=== PATIENT | male | born 2000 | race Caucasian/White ===

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

== ENCOUNTER 2021-01-10 19:14 | Emergency (ER) | payer OTHER ==
[2021-01-10 19:24] VITALS: BP 122/63; PULSE 80; RESP 18; TEMP 100
[2021-01-10] MEDS ORDERED: IBUPROFEN 600 MG TAB PO STA (20:26)
--- NOTE | 2021-01-10 20:26 | ED ---
URI HPI - General Chief Complaint: Upper Respiratory Infection Stated Complaint: Covid exposure, fever Time Seen by Provider: 01/10/21 19:52 Source: patient Mode of arrival: ambulatory Limitations: no limitations - History of Present Illness Initial Comments: 20yo male presenting today for chief complaint of fever cough bodyaches and sore throat. Patient states that his girlfriend and family have elevated. Patient states he believes he has as well. They recommended he come here for testing. Patient states he has no shortness of breath no chest pain states he had cough, bodyaches, fevers and sore throat. Some nausea, no vomiting, diarrhea or abdominal pain. Patient appears well nontoxic in no acute distress on arrival. 100F tylenol at 530PM - Related Data Home Medications Medication Instructions Recorded Confirmed No Known Home Medications 07/17/14 10/17/15 Allergies Allergy/AdvReac Type Severity Reaction Status Date / Time No Known Allergies Allergy Verified 01/10/21 19:24 Review of Systems ROS Statement: Those systems with pertinent positive or pertinent negative responses have been documented in the HPI. ROS Other: All systems not noted in ROS Statement are negative. Past Medical History Past Medical History: No Reported History Additional Past Medical History / Comment(s): SEIZURE History of Any Multi-Drug Resistant Organisms: None Reported Past Surgical History: No Surgical Hx Reported Past Psychological History: No Psychological Hx Reported Smoking Status: Vaper Past Alcohol Use History: None Reported Past Drug Use History: None Reported General Exam - General Exam Comments Initial Comments: General: The patient is awake and alert, in no distress Eye: +3 mm pupils are equal, round and reactive to light, extra-ocular movements are intact. No nystagmus. There is normal conjunctiva bilaterally. No signs of icterus. Ears, nose, mouth and throat: There are moist mucous membranes and no oral lesions. Neck: The neck is supple, there is no tenderness or JVD. Cardiovascular: There is a regular rate and rhythm. No murmur, rub or gallop is appreciated. Respiratory: Lungs are clear to auscultation, respirations are non-labored, breath sounds are equal. No wheezes, stridor, rales, or rhonchi. Musculoskeletal: Normal ROM, no tenderness. Strength 5/5. Sensation intact. radial and DP pulses equal bilaterally 2+. Neurological: A&O x 3. CN II-XII intact grossly, There are no obvious motor or sensory deficits. Coordination appears grossly intact. Speech is normal. Skin: Skin is warm and dry and no rashes or lesions are noted. Psychiatric: Cooperative, appropriate mood & affect, normal judgment. Limitations: no limitations Course Vital Signs 01/10/21 19:19 Temperature 100 F H Pulse Rate 80 Respiratory 18 Rate Blood Pressure 122/63 O2 Sat by Pulse 99 Oximetry Medical Decision Making - Medical Decision Making 20yo male presenting for cc of covid symptoms. fevers, cough, body aches. Covid +. Lungs clear. oxygenating well on rA in no distress. recommend symptomatic treatment and PCP f/u. - Lab Data Lab Results 01/10/21 Range/Units 19:53 Coronavirus (PCR) Detected A (Not Detectd) Disposition Clinical Impression: COVID-19, Headache Disposition: HOME SELF-CARE Condition: Good Instructions (If sedation given, give patient instructions): Coronavirus Disease 2019 (COVID-19) Additional Instructions: Please use medication as discussed. Please follow-up with family doctor in the next 2 days. Please return to emergency room if the symptoms increase or worsen or for any other concerns. Is patient prescribed a controlled substance at d/c from ED?: No Referrals: None,Stated [Primary Care Provider] - 1-2 days Time of Disposition: 20:26
== END 2021-01-10 21:04 | disposition home or self-care (01) ==
LOC: EC 19:14
DX: U07.1 COVID-19 (principal); F17.290 Nicotine dependence, other tobacco product, uncomplicated
CPT/HCPCS: 87635; 99283

== ENCOUNTER 2021-03-12 16:54 | Emergency (ER) | payer OTHER ==
[2021-03-12 17:15] VITALS: BP 114/72; PULSE 56; RESP 20; TEMP 98.1
--- NOTE | 2021-03-12 18:30 | ED ---
Upper Extremity HPI - General Chief Complaint: Extremity Injury, Upper Stated Complaint: Hand/arm injury/IHS Time Seen by Provider: 03/12/21 17:19 Source: patient Mode of arrival: ambulatory Limitations: no limitations - History of Present Illness Initial Comments: Patient is a 20-year-old male presenting to emergency Department with complaints of a left hand injury he sustained while at work today. 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 He states he felt a sharp pain in his left wrist. He denies any previous injuries of his left hand or wrist. He has no further complaints at this time. - Related Data Home Medications Medication Instructions Recorded Confirmed No Known Home Medications 07/17/14 03/12/21 Allergies Allergy/AdvReac Type Severity Reaction Status Date / Time No Known Allergies Allergy Verified 03/12/21 18:45 Review of Systems ROS Statement: Those systems with pertinent positive or pertinent negative responses have been documented in the HPI. ROS Other: All systems not noted in ROS Statement are negative. Past Medical History Past Medical History: No Reported History Additional Past Medical History / Comment(s): SEIZURE History of Any Multi-Drug Resistant Organisms: None Reported Past Surgical History: No Surgical Hx Reported Past Psychological History: No Psychological Hx Reported Smoking Status: Vaper Past Alcohol Use History: None Reported Past Drug Use History: None Reported General Exam - General Exam Comments Initial Comments: GENERAL: Patient is well-developed and well-nourished. Patient is nontoxic and in no acute distress. HEAD: Atraumatic, normocephalic. EYES: Pupils equal round and reactive to light, extraocular movements intact, sclera anicteric, conjunctiva are normal. Eyelids were unremarkable. ENT: Nares patent, oropharynx clear without exudates. Moist mucous membranes. NECK: Normal range of motion, supple without lymphadenopathy or JVD. LUNGS: Unlabored respirations. Breath sounds clear to auscultation bilaterally and equal. No wheezes rales or rhonchi. HEART: Regular rate and rhythm without murmurs, rubs or gallops. ABDOMEN: Soft, nontender, normoactive bowel sounds. No guarding, no rebound. No masses appreciated. : Deferred MUSCULOSKELETAL: Patient has pain on palpation of the left wrist and left proximal hand. There is no obvious deformity or swelling, his neurovascular intact. He does have some pain with finger opposition, and roller stainer strength. No clubbing or cyanosis. NEUROLOGICAL: Patient is alert and oriented x 3. Motor and sensory are also intact. Cranial nerves II through XII grossly intact. Symmetrical smile. Normal speech, normal gait. PSYCH: Normal mood, normal affect. SKIN: Warm, Dry, normal turgor, no rashes or lesions noted. Limitations: no limitations Course Vital Signs 03/12/21 17:10 Temperature 98.1 F Pulse Rate 56 L Respiratory 20 Rate Blood Pressure 114/72 O2 Sat by Pulse 99 Oximetry Medical Decision Making - Medical Decision Making Patient is a 20-year-old male here with an injury to his left hand/wrist while at work. 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 X-rays of the left hand and wrist show no acute fractures dislocations. There is a lucency seen on the lateral view, it appears to correlate to the CMC joint space. I discussed with patient that if symptoms persist without improvement after one week, recommend follow-up with orthopedics or [facility] for repeat x-rays. He is stable for disc harge. He will continue with ice, ibuprofen for any discomfort. He is in agreement with this plan of care. Disposition Clinical Impression: Sprain of left hand, Left wrist sprain Disposition: HOME SELF-CARE Condition: Stable Instructions (If sedation given, give patient instructions): Wrist Injury (ED) Additional Instructions: Please return to the Emergency Department if symptoms worsen or any other concerns. Recommended ice the area, ibuprofen for discomfort. If symptoms persist after one week without improvement, follow up with [facility]/orthopedics for follow-up x-ray. Is patient prescribed a controlled substance at d/c from ED?: No Referrals: None,Stated [Primary Care Provider] - 1-2 days Chance Mendoza DO [Doctor of Osteopathic Medicine] - 1-2 days Time of Disposition: 18:47
--- NOTE | 2021-03-12 18:37 | XR ---
Result: Clinical History: Pain. Comparison: None available. Technique: Three views of the left wrist. Three views of the left hand. Findings: Bone mineralization is appropriate for age. There is no acute displaced fracture or dislocation. There is smooth linear lucency seen on the later al view and appears to correlate to the carpometacarpal joint space. Otherwise the joint spaces are preserved. No radiopaque foreign body. Impression: No displaced fracture of the left wrist or hand. Lucency seen on the lateral view, appears to correlate to the CMC joint space. If there is persistent pain, recommend repeat radiographs in 7-10 days.
== END 2021-03-12 19:19 | disposition home or self-care (01) ==
LOC: EC 16:54
DX: S63.502A Unspecified sprain of left wrist, initial encounter (principal); X50.1XXA Overexertion from prolonged static or awkward postures, initial encounter; Y93.89 Activity, other specified; Y92.89 Other specified places as the place of occurrence of the external cause; Y99.0 Civilian activity done for income or pay
CPT/HCPCS: 99283

== ENCOUNTER 2021-06-01 19:48 | Emergency (ER) | payer OTHER ==
[2021-06-01 19:52] VITALS: BP 121/76; PULSE 100; RESP 22; TEMP 99.7
[2021-06-01] MEDS ORDERED: ACETAMINOPHEN TAB 325 MG TAB PO STA (20:35)
--- NOTE | 2021-06-01 20:37 | ED ---
Fever HPI - General Chief Complaint: Fever Stated Complaint: fever Time Seen by Provider: 06/01/21 19:53 Source: patient Mode of arrival: ambulatory Limitations: no limitations - History of Present Illness Initial Comments: 21-year-old male presents emergency Department with a chief complaint of a fever and cough. Patient reports yesterday he was cutting tall grass and believes his ALLERGIES may be acting up. States she has bilateral otalgia along with a nonproductive cough. States he had noticed some clear bilateral rhinorrhea as well. Does report sore throat but denies any drooling or changes to his voice. Denies any difficulty breathing or any chest pain. he vapes. Possible cold exposure. No changes to his taste or smell. - Related Data Home Medications Medication Instructions Recorded Confirmed No Known Home Medications 07/17/14 06/01/21 Allergies Allergy/AdvReac Type Severity Reaction Status Date / Time No Known Allergies Allergy Verified 06/01/21 20:42 Review of Systems ROS Statement: Those systems with pertinent positive or pertinent negative responses have been documented in the HPI. ROS Other: All systems not noted in ROS Statement are negative. Past Medical History Past Medical History: No Reported History Additional Past Medical History / Comment(s): SEIZURE INFANT History of Any Multi-Drug Resistant Organisms: None Reported Past Surgical History: No Surgical Hx Reported Past Psychological History: ADD/ADHD Smoking Status: Vaper Past Alcohol Use History: None Reported Past Drug Use History: None Reported General Exam Limitations: no limitations General appearance: alert, in no apparent distress Head exam: Present: atraumatic, normocephalic, normal inspection Eye exam: Present: normal appearance, EOMI Pupils: Present: normal accommodation ENT exam: Present: normal exam, normal oropharynx (Right-sided tonsil stone. No exudates tonsil erythema swelling), mucous membranes moist, TM's normal bilaterally (Fluid behind bilateral tympanic membranes), normal external ear exam Neck exam: Present: normal inspection, full ROM. Absent: tenderness, lymphadenopathy Respiratory exam: Present: normal lung sounds bilaterally. Absent: respiratory distress, wheezes, rales, rhonchi, stridor Cardiovascular Exam: Present: regular rate, normal rhythm, normal heart sounds. Absent: systolic murmur, diastolic murmur Extremities exam: Present: normal inspection, full ROM. Absent: tenderness Back exam: Present: normal inspection, full ROM. Absent: tenderness, CVA tenderness (R), CVA tenderness (L) Neurological exam: Present: alert, oriented X3 Psychiatric exam: Present: normal affect, normal mood Skin exam: Present: warm, dry, intact, normal color Course Vital Signs 06/01/21 19:48 Temperature 99.7 F H Pulse Rate 100 Respiratory 22 Rate Blood Pressure 121/76 O2 Sat by Pulse 99 Oximetry Medical Decision Making - Medical Decision Making 21-year-old male presents emergency Department with a chief complaint of a fever and cough. On physical examination, patient does have fluid behind bilateral tympanic membranes. No signs of respiratory distress. Lungs are clear to auscultation. Negative Covid. Chest x-ray is unremarkable. Patient likely has no respiratory infection. Advised to take [id number] Zyrtec. Return parameters were thoroughly discussed with patient understanding and agreeable - Lab Data Lab Results 06/01/21 Range/Units 20:06 Coronavirus (PCR) Not Detected (Not Detectd) Disposition Clinical Impression: URI (upper respiratory infection) Disposition: HOME SELF-CARE Condition: Stable Instructions (If sedation given, give patient instructions): Upper Respiratory Infection (DC) Additional Instructions: Please return to the Emergency Department if symptoms worsen or any other concerns. Is patient prescribed a controlled substance at d/c from ED?: No Referrals: None,Stated [Primary Care Provider] - 1-2 days Time of Disposition: 21:28
--- NOTE | 2021-06-01 21:19 | XR ---
EXAMINATION TYPE: XR chest 1V portable DATE OF EXAM: 06/01/2021 COMPARISON: 10/17/2015 HISTORY: Cough and fever TECHNIQUE: Single frontal view of the chest is obtained. FINDINGS: There is no focal air space opacity, pleural effusion, or pneumothorax seen. The cardiac silhouette size is within normal limits. The osseous structures are intact. IMPRESSION: No acute process.
== END 2021-06-01 21:45 | disposition home or self-care (01) ==
LOC: EC 19:48
DX: J06.9 Acute upper respiratory infection, unspecified (principal); H92.03 Otalgia, bilateral; Z20.822 Contact with and (suspected) exposure to COVID-19; F17.290 Nicotine dependence, other tobacco product, uncomplicated
CPT/HCPCS: 71045; 87635; 99283

== ENCOUNTER → 2023-11-28 | Outpatient (CLI) | payer OTHER ==
--- NOTE | 2023-11-28 16:11 | XR ---
EXAMINATION TYPE: XR lumbar spine 2 or 3V DATE OF EXAM: 11/28/2023 CLINICAL HISTORY: pain TECHNIQUE: Three views of the lumbar spine are submitted. COMPARISON: None. FINDINGS: There are 5 lumbar type vertebral bodies identified. The lumbar spine shows satisfactory alignment w ithout evidence of acute fracture or dislocation. Vertebral body heights are within normal limits. Disc spaces are within normal limits. The overlying soft tissue appears unremarkable. IMPRESSION: No acute fracture or dislocation is seen in the lumbar spine. ICD 10 NO FRACTURE, INITIAL EVALUATION
== END | disposition home or self-care (01) ==
LOC: RADXRMAIN 15:57
PROVIDERS: ATTEND Emergency Medicine
DX: S39.012A Strain of muscle, fascia and tendon of lower back, initial encounter (principal); X58.XXXA Exposure to other specified factors, initial encounter
CPT/HCPCS: 72100